=== PATIENT | female | born 1965 | race Caucasian/White ===

== ENCOUNTER → 2022-04-08 | Outpatient (CLI) | payer MEDICARE ==
[~2022-04-08] MED LIST: ALBU90OI61 INH; ALBUTEROL MDI; AMIT10 PO; AZIT500 PO; DOCU100 PO; ESTR2 PO; HYDACE5 PO; IBUP800 PO; LEVSOD100 PO; Milk Of Ma400 MG/5 M PO; NAPR500 PO; OMEP40CA12 PO; OXYACE5T PO; OXYACE7.5T PO; PROM25 PO; Percocet 5-3251 EACH PO; RXOXYACE PO; SULTRIDS PO; Ventolin5 MG/1 ML INH; ZOLP5 PO
== END | disposition home or self-care (01) ==
LOC: LAB 13:30 → LAB SHORT 13:30
DX: R10.9 Unspecified abdominal pain (principal)
CPT/HCPCS: 87086

== ENCOUNTER → 2022-04-25 | Outpatient (CLI) | payer MEDICARE ==
[2022-04-25 12:26] LABS: Creatinine Urine 72.6 mg/dL (27.00-270.00); Microalbumin, Urine Quant. 11.2 mg/L (0.000-20.000); Protein, Urine Quantitative 7.9 mg/dL (0.0-11.9)
== END | disposition home or self-care (01) ==
LOC: LAB SHORT 10:36 → LAB 10:36 → LAB FUT 04-23 08:40
PROVIDERS: Internal Medicine Nephrology
DX: N18.2 Chronic kidney disease, stage 2 (mild) (principal); D63.1 Anemia in chronic kidney disease; N25.81 Secondary hyperparathyroidism of renal origin; E55.9 Vitamin D deficiency, unspecified; E78.00 Pure hypercholesterolemia, unspecified; D51.8 Other vitamin B12 deficiency anemias; D52.8 Other folate deficiency anemias; D50.9 Iron deficiency anemia, unspecified; R76.9 Abnormal immunological finding in serum, unspecified; R94.5 Abnormal results of liver function studies; R94.6 Abnormal results of thyroid function studies
CPT/HCPCS: 81050; 82043; 82570; 84156